=== PATIENT | female | born 1970 | race Caucasian/White ===

== ENCOUNTER 2021-01-10 11:15 | Outpatient (CLI) | payer BC | END 2021-01-10 11:16 | disposition home or self-care (01) | LOC: CSHMAMMO 11:15 | PROVIDERS: ATTEND Internal Medicine | DX: Z12.31 Encounter for screening mammogram for malignant neoplasm of breast (principal) | CPT/HCPCS: 77063; 77067 ==

== ENCOUNTER 2023-12-09 08:46 | Outpatient (CLI) | payer BC ==
[2023-12-09] MEDS ORDERED: Iopamidol 370 76% 100 ML VIAL ONE (09:50)
== END 2023-12-09 08:47 | disposition home or self-care (01) ==
LOC: CSHCT 08:46
PROVIDERS: ATTEND Internal Medicine
DX: I72.8 Aneurysm of other specified arteries (principal)
CPT/HCPCS: 74174